=== PATIENT | female | born 1945 | race Caucasian/White ===

== ENCOUNTER → 2016-06-01 09:48 | Outpatient (CLI) | payer MEDICARE, OTHER ==
[2013-02-26 13:24] VITALS: BMI 24.7
[~2016-06-01 09:48] MED LIST: CALCIUM 600+D T1 TA1 PO; CELEBREX200 MG PO; D3 PO; EZFE 200200 MG PO; PREVACID30 MG PO; SINGULAIR10 MG PO; ZOCOR20 MG PO
[2016-06-01 11:01] LABS: BASOPHILS 0.2 % (0.0-2.0); EOSINOPHILS 2.2 % (0-7); HEMATOCRIT 39.2 % (36.0-48.0); HEMOGLOBIN 12.5 g/dL (12-16); IMMATURE GRANULOCYTES 0.2 % (0-5); LYMPHOCYTES 21.4 % (15-50); MCHC 31.9 g/dL (31.0-37.0); MCV 87.7 fL (80.0-100.0); MONOCYTES 7.7 % (2-11); NEUTROPHILS 68.3 % (40-80); PLATELET COUNT 302 10x3/uL (130-400); RBC 4.47 10x6/uL (4.00-5.40); RDW 14.3 % (11.5-14.5); WBC 5.5 10x3/uL (4.8-10.8)
[2016-06-01 11:08] LABS: % SATURATION 22 % (15-55); IRON 69 ug/dl (35-150); TOTAL IRON BIND CAPACITY 305 ug/dl (260-445); UNSAT IRON BIND CAPACITY 236 ug/dl (150-375)
[2016-06-01 11:19] LABS: ALKALINE PHOSPHATASE 84 U/L (46-116); ALT (SGPT) 32 U/L (10-68); BILIRUBIN - DIRECT 0.07 mg/dL (0.00-0.30); BILIRUBIN - INDIRECT 0.26 mg/dL (0.00-1.00); BILIRUBIN - TOTAL 0.33 mg/dL (0.2-1.3); CALC OSMOLALITY 285 mosm/kg (275-300); CALCIUM 8.5 mg/dL (8.5-10.1); CARBON DIOXIDE 32.3 mmol/L (21.0-32.0); CHLORIDE - SERUM 110 mmol/L (98-107); CREATININE - SERUM 0.8 mg/dL (0.6-1.3); FERRITIN 29 ng/mL (3-244); GLUCOSE 85 mg/dL (74-106); MAGNESIUM - SERUM 2.2 mg/dL (1.8-2.4); POTASSIUM - SERUM 4.6 mmol/L (3.5-5.1); PROTEIN - SERUM 6.2 g/dL (6.4-8.2); SODIUM 144 mmol/L (136-145); UREA NITROGEN 13 mg/dL (7-18); eGFR NON AFRICAN AMERICAN 75 mL/min (90-120)
[2016-06-02 09:17] LABS: FOLATE (FOLIC ACID) - SERUM >20.0 ng/mL (>3.0)
[2016-06-02 10:20] LABS: VITAMIN D 25 HYDROXY 45.9 ng/mL (30.0-100.0)
== END | disposition home or self-care (01) ==
LOC: D.LAB 09:48
PROVIDERS: Internal Medicine Gastroenterology
DX: K76.0 Fatty (change of) liver, not elsewhere classified (principal); R63.4 Abnormal weight loss

== ENCOUNTER 2016-08-05 10:00 | Emergency (ER) | payer MEDICARE, OTHER ==
[2013-02-26 13:24] VITALS: BMI 24.7
[2016-08-05 10:47] LABS: HEMATOCRIT 38.2 % (36.0-48.0); HEMOGLOBIN 12.5 g/dL (12-16); LYMPHOCYTES 14.6 % (15-50); MCH 28.4 pg (26.0-34.0); MCHC 32.7 g/dL (31.0-37.0); MCV 86.8 fL (80.0-100.0); MEAN PLATELET VOLUME 8.1 fL (7.4-10.4); NEUTROPHILS 78.2 % (40-80); PLATELET COUNT 305 10x3/uL (130-400); RDW 14.6 % (11.5-14.5); WBC 5.7 10x3/uL (4.8-10.8)
[2016-08-05 11:03] LABS: ALKALINE PHOSPHATASE 83 U/L (46-116); ALT (SGPT) 34 U/L (10-68); BILIRUBIN - TOTAL 0.26 mg/dL (0.2-1.3); CALC OSMOLALITY 277 mosm/kg (275-300); CALCIUM 8.6 mg/dL (8.5-10.1); CHLORIDE - SERUM 104 mmol/L (98-107); CREATININE - SERUM 0.8 mg/dL (0.6-1.3); GLUCOSE 89 mg/dL (74-106); POTASSIUM - SERUM 4.3 mmol/L (3.5-5.1); PROTEIN - SERUM 6.7 g/dL (6.4-8.2); SODIUM 140 mmol/L (136-145); UREA NITROGEN 12 mg/dL (7-18); eGFR NON AFRICAN AMERICAN 75 mL/min (90-120)
[2016-08-05 11:10] LABS: TROPONIN-I < 0.017 ng/mL (0.000-0.060)
== END 2016-08-05 13:57 | disposition home or self-care (01) ==
LOC: D.ER 10:00
PROVIDERS: Emergency Medicine
DX: R53.81 Other malaise (principal); R05 Cough; J11.1 Influenza due to unidentified influenza virus with other respiratory manifestations; K21.9 Gastro-esophageal reflux disease without esophagitis; E78.00 Pure hypercholesterolemia, unspecified; C77.9 Secondary and unspecified malignant neoplasm of lymph node, unspecified; R00.0 Tachycardia, unspecified

== ENCOUNTER 2017-02-18 21:29 | Inpatient (IN) | payer MEDICARE, OTHER ==
--- NOTE | ~2017-02-18 | HEMODYNAMI ---
PATIENT:CHRISSY NAVA MEDICAL RECORD: [id number] : [birth year] LOC[facility] [id number] ADMISSION DATE: 02/19/17 Generatedon:02/20/20179:44 Patient name: CHRISSY NAVA Patient #: [id number] SSN: : 1945 Date of study: 02/20/2017 Page: Of Hemodynamic Procedure Report Patient Data Patient Demographics Procedure consent was obtained First Name: CHRISSY Gender: Female Last Name: BRANDY : 1945 Patient #: [id number] Age: 71 year(s) Race: Unknown Additional ID: [id number] Contact details [address]: [address] [place] [address] rd State: [place] City: [place] Zip code: [address] Past Medical History Allergies: No known allergies Admission Admission Data Admission Date: 02/19/2017 Admission Time: 1:36 Room #: 2121 Weight (lbs.): 130.07 Weight (kg.): 59 Procedure Procedure Types Cath Procedure Diagnostic Procedure LHC LH w/Coronaries Miscellaneous Procedures Moderate Sedation up to 15 minutes Procedure Description Procedure Date Procedure Date: 02/20/2017 Procedure Start Time: 9:29 Procedure End Time: 9:43 Procedure Staff Name Function Tyrno Hager MD Performing Physician Elliott Nguyen RN Nurse Kitty Lea RT Scrub Rody Mohr RT Monitor Juliocesar Junior RT Monitor Procedure Data Cath Procedure Fluoroscopy Diagnostic fluoroscopy Total fluoroscopy Time: 1 time: 1 min min Diagnostic fluoroscopy Total fluoroscopy dose: 104 dose: 104 mGy mGy Contrast Material Contrast Material Type Amount (ml) Isovue 300 29 Entry Location Entry Primary Successful Side Size Upsize Upsize Entry Closure Succes sful Closure Location (Fr) 1 (Fr) 2 (Fr) Remarks Device Remarks Femoral Right 5 Fr Exoseal artery Estimated blood loss: 10 ml Diagnostic catheters Device Type Used For End Catheter Placement Cordis 5Fr JL 4.0 Procedure Catheter (MP) Cordis 5Fr 3DRC Catheter Procedure (MP) Cordis 5Fr Pigtail Procedure Catheter (MP) Procedure Complications No complications Procedure Medications Medication Administration Route Dosage 0.9% NaCl I.V. 100 ml/hr Oxygen NC 2 l/min Heparin Flush Bag added to field 2 bags (1000units/500ml NS) Lidocaine 2% added to field 20 Versed I.V. 1 mg Fentanyl I.V. 50 mcg Hemodynamics Rest Heart Rate: 85 (bpm) Pressure Samples Time Site Value (mmHg) Purpose Heart Use Rate(bpm) 9:32 AO 115/59(83) Snapshot 86 9:32 AO 45/-5(9) Snapshot 87 9:36 LV 116/-19,8 EDP 88 9:36 LV 85/-12,5 Snapshot 88 9:37 AO 108/49(76) Pullback 89 9:37 LV 97/28,4 Pullback 89 Gradients Valve Time Site 1 Site 2 Mean SEP/DFP Peak To Heart Use (mmHg) (sec/min) Peak Rate (mmHg) (bpm) Aortic 9:37 LV AO 0 89 97/28,4 108/49(76) Calculations Valve P-P Mean Valve Index Valve Source Name Gradient Area Flow (cm2) Aortic 0 0 Snapshots Pre Cath Intra NCS Post Cath Vital Signs Time Heart Resp SPO2 etCO2 HR8jiig NIBP (mmHg) Rhythm Pain Sedation Rate (ipm) (%) (mmHg) (mmHg) Status Level (bpm) 9:08:57 84 16 100 0 0 123/71(103) NSR 0 (11) 10(A) , No pain 9:13:34 87 14 100 0 0 121/69(97) NSR 0 (11) 10(A) , No pain 9:18:08 84 15 100 0 0 115/70(95) NSR 0 (11) 10(A) , No pain 9:22:43 90 15 100 0 0 124/65(100) NSR 0 (11) 10(A) , No pain 9:27:17 87 19 99 0 0 117/74(94) NSR 0 (11) 10(A) , No pain 9:31:54 89 16 100 0 0 103/66(81) NSR 0 (11) 9(A) , No pain 9:36:26 87 15 100 0 0 102/61(84) NSR 0 (11) 9(A) , No pain 9:40:59 85 17 100 0 0 100/53(77) NSR 0 (11) 9(A) , No pain Medications Time Medication Route Dose Verified Delivered Reason Notes Effec tiveness by by 9:08:36 0.9% NaCl I.V. 100 Elliott Elliott Per ml/hr Wendy Nguyen physician RN RN 9:08:50 Oxygen NC 2 Elliott Elliott Per l/min Wendy Nguyen physician RN RN 9:09:13 Heparin Flush added 2 Elliott Elliott used for Bag to bags Wendy Nguyen procedure (1000units/500ml field RN RN NS) 9:09:26 Lidocaine 2% added 20ml Elliott Elliott for local to vial Lorigan Lorigan anesthetic field RN RN 9:28:23 Versed I.V. 1 mg Elliott Elliott for Lorigan Lorigan sedation RN RN 9:28:35 Fentanyl I.V. 50 Elliott Elliott for mcg Lorigan Lorigan sedation RN degreasing solution mixer Log Time Note 8:31:55 Juliocesar SANCHEZ(R) sent for patient. Start room use. 8:31:56 Time tracking: Regular hours 8:32:01 Plan of Care:Hemodynamics will remain stable., Cardiac rhythm will remain stable., Comfort level will be maintained., Respiratory function will remain adequate., Patient/ family verbilizes understanding of procedure., Procedure tolerated without complication., Recovers from procedure without complications.. 9:00:21 Patient received from PCU to CCL 1 Alert and oriented. Tansferred to table in Supine position. 9:00:22 Warm blankets applied, and vee hugger turned on for patient comfort. 9:00:22 Correct patient and procedure confirmed by team. 9:00:24 Signed procedure consent form obtained from patient. 9:00:25 ECG and BP/O2 sat monitors applied to patient. 9:00:26 Full Disclosure recording started 9:08:11 Vital chart was started 9:08:36 0.9% NaCl 100 ml/hr I.V. was administered by Elliott Nguyen RN; Per physician; 9:08:50 Oxygen 2 l/min NC was administered by Elliott Nguyen RN; Per physician; 9:09:13 Heparin Flush Bag (1000units/500ml NS) 2 bags added to field was administered by Elliott Lorigan RN; used for procedure; 9:09:26 Lidocaine 2% 20ml vial added to field was administered by Elliott Nguyen RN; for local anesthetic; 9:09:29 Baseline sample Acquired. 9:09:40 Rhythm: sinus rhythm 9:10:15 H&P Date Dictated: 02/19/2017 Within 30 days and on chart.. 9:10:18 Pre-procedure instructions explained to patient. 9:10:18 Pre-op teaching completed and patient verbalized understanding. 9:10:33 Family in patients room. 9:10:48 Patient NPO since Midnight. 9:11:05 Is the patient allergic to Iodine/contrast media? No. 9:11:21 Is patient on blood thinner?Yes 9:11:37 ACC The patient was administered the following blood thiners within the last 24 hours: ACCPlavix 9:11:42 Patient diabetic? No. 9:11:50 Patient not . Patient is over age 55. 9:12:07 Previous problem with sedation/anesthesia? No ? 9:12:10 Snore? Yes 9:12:11 Sleep apnea? No 9:12:13 Deviated septum? No 9:12:15 Opens mouth fully? Yes 9:12:16 Sticks out tongue? Yes 9:12:27 Airway obstruction? No seasonal asthma 9:12:38 Dentures? Yes top in bottom out 9:12:56 Pre procedure: right dorsailis pedis pulse 1+ Palpable, but thready & weak; easily obliterated 9:13:25 Modified Robe's test Ulnar > 7 seconds. 9:13:34 FAILED ALLENS 9:13:40 Patient pain scale 0/10 ?. 9:14:04 IV patent on arrival in left forearm with 0.9% NaCl at O. 9:14:25 Lab results completed and on chart. 9:14:32 Right groin area was prepped with chlora-prep and draped in sterile fashion 9:14:59 Alarms reviewed by RMitul N. 9:15:00 Sharps counted by scrub and verified by R.N. 9:15:07 --------ALL STOP TIME OUT------ 9:15:08 Final Timeout: patient, procedure, and site verified with staff and physician. All members of the team are in agreement. 9:15:11 Right groin site verified by team. 9:15:21 Physical assessment completed. ASA score P 2 - A patient with mild systemic disease as per Tyron Hager MD. 9:15:30 Sedation plan: IV Moderate Sedation Versed, Fentanyl 9:15:46 Zero performed for pressure channel P1 9:15:51 Zero performed for pressure channel P1 9:18:34 Use device set Femoral Dx 9:19:38 Tegaderm 4 x 4 opened to sterile field. 9:19:40 Acist Manifold opened to sterile field. 9:19:42 Acist Hand Control opened to sterile field. 9:20:02 Acist Syringe opened to sterile field. 9:20:03 Bag Decanter opened to sterile field. 9:20:04 Medline Cath Pack opened to sterile field. 9:20:13 Terumo 5Fr [place] Sheath opened to sterile field. 9:20:16 St Santino 260cm J .035 wire opened to sterile field. 9:20:19 Diagnostic Infinity 5Fr Multipack catheter opened to sterile field. 9:21:03 CardioGenics 4Fr Micropuncture Set ([id number]) opened to sterile field. 9:26:59 Patient allergic to No known allergies 9:27:09 Patient Weight : 130.07 lbs 9:27:36 Procedure type changed to Cath procedure, Diagnostic procedure, LHC, LHC w/Coronaries, Miscellaneous Procedures, Moderate Sedation up to 15 minutes 9:28:23 Versed 1 mg I.V. was administered by Elliott Nguyen RN; for sedation; 9:28:35 Fentanyl 50 mcg I.V. was administered by Elliott Nguyen RN; for sedation; 9:29:06 Procedure started. 9:29:27 Local anesthetic to right femoral artery with Lidocaine 2% by Tyron Hager MD.INITIAL ACCESS ONLY 9:30:39 A 5 Fr sheath was inserted into the Right Femoral artery 9:31:08 A Cordis 5Fr JL 4.0 Catheter (MP) was advanced over the wire and used for Procedure. 9:32:11 LCA angiography performed. 9:33:20 Catheter exchanged over wire. 9:33:32 A Cordis 5Fr 3DRC Catheter (MP) was advanced over the wire and used for Procedure. 9:34:38 RCA angiography performed. 9:35:10 Catheter exchanged over wire. 9:35:52 A Cordis 5Fr Pigtail Catheter (MP) was advanced over the wire and used for Procedure. 9:37:24 LV angiography performed. 9:37:38 LV gram done using BENNETT 9:37:50 EF : 65 % 9:37:53 LV hemodynamics recorded. 9:38:01 Injector settings: Ml/sec: 12, Volume: 8, 9:38:05 Catheter removed. 9:38:16 Cordis 5Fr Exoseal opened to sterile field. 9:38:42 Sheath removed intact; hemostasis achieved with Exoseal to the Right Femoral artery. 9:38:47 Procedure ended.(Physican Out) 9:39:04 Fluoroscopy time 01.00 minutes. 9:39:09 Fluoroscopy dose: 104 mGy 9:39:09 Flurop Dose total: 104 9:39:20 Contrast amount:Isovue 300 29ml. 9:39:29 Sharps counted by scrub and verified by R.N. 9:39:36 Insertion/operative site no bleeding no hematoma. 9:39:38 Insertion/operative site no bleeding no hematoma. 9:39:43 Post-op/insertion site Right Femoral artery dressed using a 4 x 4 and Tegaderm. 9:39:47 Post Procedure Pulses reassessed and unchanged 9:40:13 Post-procedure physical assessment completed. ASA score P 2 - A patient with mild systemic disease as per Tyron Hager MD. 9:40:19 Post procedure rhythm: unchanged. 9:40:23 Estimated blood loss: 10 ml 9:40:27 Post procedure instruction explained to patient.Patient verbalizes understanding. 9:40:28 Patient needs reinforcement of post procedure teaching. 9:41:31 Procedure and supply charges have been captured, reviewed, submitted and are correct. 9:43:14 Procedure Complication : No complications 9:43:27 Vital chart was stopped 9:43:28 See physician's report for complete and final results. 9:43:30 Report given to PCU. 9:43:34 Patient transfered to PCU with Bed. 9:43:36 Procedure ended. 9:43:36 Full Disclosure recording stopped 9:43:43 End room use (Document Last) Device Usage Item Name Manufacture Quantity Catalog Hospital Part Current Minimal Lot# / Number Charge Number Stock Stock Serial# Code Tegaderm 4 x 3M 1 1626W 225956 340607 723839 5 4 Acist Acist 1 94411 754933 639233 004155 5 Manifold Medical [employer] Inc Acist Hand Acist 1 33574 585400 954310 752385 5 Control Medical Systems Inc Acist Syringe Acist 1 86101 394232 232255 981200 20 Medical Systems Inc Bag Decanter Microtek 1 2002S 331338 38883 961655 5 Medical Inc. Medline Cath Cardinal 1 [id number] 817199 39230 067773 5 Pack Health Terumo 5Fr Terumo 1 HRQ141 231971 810400 857531 [address] Santino 1 994392 555659 547115 318871 30 J .035 wire Diagnostic Cardinal 1 [id number] 682355 91862 997367 30 Infinity 5Fr Health Multipack catheter Cook 4Fr Cook Medical 1 [id number] 979866 137419 467369 5 Micropuncture Set ([id number]) Cordis 5Fr JL Cardinal 1 865544 5 4.0 Catheter Health (MP) Cordis 5Fr Cardinal 1 572405 5 3DRC Catheter Health (MP) Cordis 5Fr Cardinal 1 181248 5 Pigtail Health Catheter (MP) Cordis 5Fr Cardinal 1 EX500 753471 670177 641460 10 [facility] Health Signature Audit [place] Stage Time Signature Unsigned Intra-Procedure 02/20/2017 Rody Mohr 9:44:16 AM RT(R) Signatures Monitor : Rody Mohr Signature : RT Date : Time : Monitor : Juliocesar Junior RT Signature : Date : Time : [id number] [place] [address]
[2017-02-18 22:20] LABS: BASOPHILS 0.2 % (0-2); EOSINOPHILS 2.3 % (0-7); HEMATOCRIT 35.2 % (36.0-48.0); HEMOGLOBIN 10.8 g/dL (12-16); IMMATURE GRANULOCYTES 0.4 % (0-5); LYMPHOCYTES 35.4 % (15-50); MCH 23.6 pg (26.0-34.0); MCHC 30.7 g/dL (31.0-37.0); MEAN PLATELET VOLUME 8.8 fL (7.4-10.4); MONOCYTES 10.5 % (2-11); NEUTROPHILS 51.2 % (40-80); RBC 4.57 10x6/uL (4.00-5.40); RDW 16.8 % (11.5-14.5); WBC 4.8 10x3/uL (4.8-10.8)
[2017-02-18 22:22] LABS: PLATELET COUNT 392 10x3/uL (130-400)
[2017-02-18 22:24] LABS: APTT 28.1 SECONDS (22.8-39.4); INR 0.92 (0.85-1.17); PROTIME 12.2 SECONDS (11.6-15.0)
[2017-02-18 22:30] LABS: ALKALINE PHOSPHATASE 94 U/L (46-116); ALT (SGPT) 21 U/L (10-68); BILIRUBIN - TOTAL 0.18 mg/dL (0.2-1.3); CALC OSMOLALITY 276 mosm/kg (275-300); CALCIUM 8.4 mg/dL (8.5-10.1); CARBON DIOXIDE 28.3 mmol/L (21.0-32.0); CHLORIDE - SERUM 105 mmol/L (98-107); CREATININE - SERUM 0.8 mg/dL (0.6-1.3); GLUCOSE 100 mg/dL (74-106); POTASSIUM - SERUM 3.9 mmol/L (3.5-5.1); PROTEIN - SERUM 6.4 g/dL (6.4-8.2); SODIUM 138 mmol/L (136-145); UREA NITROGEN 14 mg/dL (7-18); eGFR NON AFRICAN AMERICAN 75 mL/min (90-120)
[2017-02-18 22:40] LABS: CKMB 0.3 U/L (0.0-3.6); CREATINE KINASE 43 UL (21-215)
[2017-02-18 22:54] LABS: TROPONIN-I < 0.017 ng/mL (0.000-0.060)
--- NOTE | 2017-02-19 02:00 | NUR ---
RECEIVED PT TO ROOM FROM ER VIA WC ACCOMPANIED BY SPOUSE AND ER STAFF. VSS, AFEBRILE. DENIES ANY C/O PAIN UPON ARRIVAL. PLACED ON TELE, NSR ON MONITOR HR 76. MEDICATIONS RECONCILED AT THE BEDSIDE. ADMISSION ASSESSMENT AND HISTORY COMPLETED. UNIT ROUTINES AND PROTOCOLS DISCUSSED WITH PT AND SPOUSE, THEY BOTH VERBALIZED UNDERSTANDING. CALL LIGHT PLACED WITHIN REACH. WILL CONT TO MONITOR.
[2017-02-19 02:08] VITALS: BP 124/65
[2017-02-19] MEDS ORDERED: OMEPRAZOLE40 MG PO (02:22)
[2017-02-19 02:25] VITALS: BP 117/65; BMI 23.8
[2017-02-19 04:00] VITALS: BP 116/59
[2017-02-19 05:16] LABS: CKMB 0.3 U/L (0.0-3.6); CREATINE KINASE 34 UL (21-215); TROPONIN-I < 0.017 ng/mL (0.000-0.060)
--- NOTE | 2017-02-19 07:00 | NUR ---
RECEIVED REPORT. ASSUMED CARE OF PATIENT. CALL LIGHT WITHIN REACH. PATIENT SITTING UP IN BED WITH ATTENTION TO TELEVISION. PATIENT SIPPING ON COFFEE. DENEIS ANY CHEST PAIN OR DISCOMFORT. DENIES SOB. SPOUSE AT BEDSIDE. NO DISTRESS.
[2017-02-19 08:00] VITALS: BP 115/58
[2017-02-19 10:33] LABS: BASOPHILS 0.3 % (0-2); EOSINOPHILS 2.8 % (0-7); HEMATOCRIT 33.1 % (36.0-48.0); IMMATURE GRANULOCYTES 0.5 % (0-5); LYMPHOCYTES 34.7 % (15-50); MCH 23.5 pg (26.0-34.0); MCHC 30.2 g/dL (31.0-37.0); MCV 77.9 fL (80.0-100.0); MONOCYTES 9.4 % (2-11); NEUTROPHILS 52.3 % (40-80); PLATELET COUNT 374 10x3/uL (130-400); RBC 4.25 10x6/uL (4.00-5.40); RDW 17.2 % (11.5-14.5); WBC 3.9 10x3/uL (4.8-10.8)
[2017-02-19 11:00] VITALS: BP 121/65
[2017-02-19 11:08] LABS: CALC OSMOLALITY 280 mosm/kg (275-300); CALCIUM 8.6 mg/dL (8.5-10.1); CHLORIDE - SERUM 105 mmol/L (98-107); CKMB 0.4 U/L (0.0-3.6); CREATINE KINASE 37 UL (21-215); CREATININE - SERUM 0.7 mg/dL (0.6-1.3); GLUCOSE 93 mg/dL (74-106); POTASSIUM - SERUM 4.2 mmol/L (3.5-5.1); SODIUM 141 mmol/L (136-145); TROPONIN-I < 0.017 ng/mL (0.000-0.060); UREA NITROGEN 13 mg/dL (7-18); eGFR NON AFRICAN AMERICAN 88 mL/min (90-120)
--- NOTE | 2017-02-19 11:44 | NUR ---
CONSENTS SIGNED AND ON THE CHART FOR HEART CATH IN AM.
--- NOTE | 2017-02-19 14:40 | HP ---
PATIENT: CHRISSY NAVA MEDICAL RECORD: [id number] ACCOUNT: [id number] LOCATION:[address] : [birth year] ADMISSION DATE: 02/19/17 HISTORY AND PHYSICAL EXAMINATION DATE OF ADMISSION: 02/19/2017. CHIEF COMPLAINT: Shortness of breath. HISTORY OF PRESENT ILLNESS: The patient is a 71-year-old female patient who has been a patient of mine for many years. She had over the past couple of weeks, had increasing shortness of breath. She has had some chest tightness. She had been referred to Dr. Lyons, was seen by Dr. Alvarado'elaine last week who had scheduled her to have an echocardiogram as well as a cardiac catheterization. The patient, on Monday, apparently was sitting watching TV noticed elevated pulse rate, low blood pressure, pressure in her chest, presented to the Emergency Room where she was evaluated by the Emergency Room physician felt the patient should be admitted. The patient was therefore admitted to the cardiac service without any notification. PAST MEDICAL HISTORY: Significant that she has had a history of having hyperlipidemia. She has had a history of having asthma in the past. She had carpal tunnel syndrome, anxiety, history of anemia, postmenopausal syndrome, osteoporosis. She is a . She had a gastric bypass, tonsillectomy, cholecystectomy. She has had a concussion in 1975, metastatic melanoma in 1996, broken elbow in 2000. FAMILY HISTORY: Mother had Alzheimer's, thyroid issues. Grandfather had myocardial infarction. Father had asthma. SOCIAL HISTORY: The patient was born and raised in [facility]. She is a retired email marketing assistant. Mother of 3. She is educated through the 12th grade. She is . HABITS: She denies any ethanol, tobacco use or abuse. MEDICATIONS: Include Singulair 10 mg once a day, Prilosec 20 mg once a day, ProAir 90 mcg 2 puffs q.4 hours p.r.n. shortness of breath, Zocor 20 mg 1 p.o. q.h.s. REVIEW OF SYSTEMS: CONSTITUTIONAL: She denies any headaches, seizure, or syncope. She denies change in visual or auditory acuity. PULMONARY: She has reported having shortness of breath. CARDIOVASCULAR: She has had chest pain. She has had no palpitations. No PND or orthopnea. GASTROINTESTINAL: No chronic nausea, vomiting, melena or hematochezia. GENITOURINARY: No urgency, frequency, or dysuria. PHYSICAL EXAMINATION: VITAL SIGNS: Today, the patient's temperature is 97, pulse 81, respirations 20 and blood pressure is 145/67 and O2 sat is 97%. HEENT: Head is normocephalic. No lesions. Ears: TMs clear. Eyes: Pupils equal, round and reactive to light. Her extraocular movements are intact. Nasal cavity, oral cavity, and oropharynx are clear. HISTORY AND PHYSICAL [id number] BRANDYCHRISSY NECK: Supple. There is no adenopathy. HEART: Has a regular rate and rhythm without any murmurs, gallops or rubs. LUNGS: Clear. ABDOMEN: Soft, bowel sounds are positive. LABORATORY DATA: Hemoglobin was 10.8, hematocrit 35.2, her platelets were 392. INR was 0.92. Her PTT was 28.1. Sodium was 138, potassium 3.9, chloride 105, and CO2 was 28.3, BUN is 14, creatinine is 0.8. The patient had a chest x-ray, which was unremarkable. EKG showed normal sinus rhythm, no ST-T wave changes. Cardiac enzymes were unremarkable. ASSESSMENT: Chest pain, possible angina, history of hyperlipidemia, family history of coronary artery disease, history of gastric bypass, history of gastroesophageal reflux, and asthma. PLAN: The patient is admitted. Cardiology consultation will be obtained. The patient will have cardiac enzymes q.8 hours, also will have echocardiogram. Will proceed with heart catheterization on Monday. TRANSINT:[id number] Voice Confirmation ID: [id number] DOCUMENT ID: [id number] RENAY LAY MD at 1440 CC: [id number] DICTATION DATE: 02/19/17 1020 ACCOUNT DEVELOPMENT EXECUTIVE: 02/19/17 1107 ADM IN [facility] [address] [place] [address]
[2017-02-19 15:04] VITALS: BP 127/61
[2017-02-19 16:12] LABS: CKMB 0.2 U/L (0.0-3.6); CREATINE KINASE 38 UL (21-215)
[2017-02-19 16:13] LABS: TROPONIN-I < 0.017 ng/mL (0.000-0.060)
--- NOTE | 2017-02-19 17:56 | NUR ---
PAGE PLACED TO PATIENT IS CONCERNED WITH RECEIVING HER HOME MEDICATIONS AND NONE WAS RESTARTED.
--- NOTE | 2017-02-19 18:00 | NUR ---
ORDERED RECEIVED FROM TO CONTINUE ALL HOME MEDS. ORDERS INPUTTED INTO THE COMPUTER.
--- NOTE | 2017-02-19 20:00 | NUR ---
PT RESTING IN BED. ALERT/ORIENTED. AT BEDSIDE. O2 @2L/NC WITH SHALLOW/NONLABORED RESPIRATIONS. PIV TO LFA SALINE LOCKED. PT WILL HAVE ANGIOGRAM IN AM. NPO AFTER MIDNGHT. CPOC.
--- NOTE | 2017-02-19 23:11 | NUR ---
PT RESTING, FEELING SOME TIGHTNESS IN HER CHEST. APPLIED NEW NITRO PASTE TO CHEST WALL. PT NO LONGER WISHES TO WAIT FOR HS MEDS (NIFEREX/SINGULAR/ZOCOR) TO BE PULLED BY REEXAMINER. SHE STATES SHE IS READY TO GO TO SLEEP. SALINE LOCK FLUSHED IN LFA/PATENT. PT WILL BE NPO AFTER MIDNIGHT FOR LEFT HEART CATH IN AM PER DR DE LA CRUZ. STAYING AT BEDSIDE. NO OTHER NEEDS AT THIS TIME.
[2017-02-20] VITALS: BP 127/62
--- NOTE | 2017-02-20 03:45 | NUR ---
PT RESTING WITH EYES CLOSED. RESPS EVEN/NONLABORED. AT BEDSIDE.
[2017-02-20 04:00] VITALS: BP 112/67
[2017-02-20 04:47] LABS: BASOPHILS 0.2 % (0-2); EOSINOPHILS 4.2 % (0-7); HEMATOCRIT 35.4 % (36.0-48.0); HEMOGLOBIN 10.7 g/dL (12-16); IMMATURE GRANULOCYTES 0.4 % (0-5); LYMPHOCYTES 23.2 % (15-50); MCH 23.3 pg (26.0-34.0); MCHC 30.2 g/dL (31.0-37.0); MCV 77.1 fL (80.0-100.0); MEAN PLATELET VOLUME 8.8 fL (7.4-10.4); PLATELET COUNT 388 10x3/uL (130-400); RBC 4.59 10x6/uL (4.00-5.40); RDW 17.2 % (11.5-14.5)
[2017-02-20 04:48] LABS: WBC 5.3 10x3/uL (4.8-10.8)
[2017-02-20 04:58] LABS: ANION GAP 13.3 mmol/L (8-16); CALCIUM 8.3 mg/dL (8.5-10.1); POTASSIUM - SERUM 4.3 mmol/L (3.5-5.1)
[2017-02-20 04:59] LABS: CREATININE - SERUM 0.9 mg/dL (0.6-1.3)
--- NOTE | 2017-02-20 07:30 | NUR ---
RECEIVED PT IN BED AAOX4 RESP UNLABORED DENIES ANY NEEDS OR DISCOMFORT AT THIS NAD NOTED TIME AT BEDSIDE
[2017-02-20 08:00] VITALS: BP 116/62
--- NOTE | 2017-02-20 09:10 | NUR ---
PT TO TRUSS ASSEMBLER VIA BED IN STABLE CONDITION
--- NOTE | 2017-02-20 10:00 | NUR ---
RECEIVED PT BACK FROM HISTORIAN RESEARCH ASSISTANT VSS DRSG TO RT GROIN C/D/I PPPX4 NAD NOTED
[2017-02-20 11:43] VITALS: BP 103/57
--- NOTE | 2017-02-20 16:50 | NUR ---
REVIEWED DISCHARGE INSTRUCTIONS WITH PT STATES UNDERSTANDING COPY GIVEN DCD SALINE LOCK TO LFA WITH IV CATHETER INTACT SITE FREE OF REDNESS OR EDEMA PT DISCHARGED HOME LEFT UNIT VIA W//C IN STABLE CONDITION WITH ALL PERSONAL BELONGINGS
--- NOTE | 2017-03-02 12:49 | EC ---
PATIENT:CHRISSY NAVA DATE OF SERVICE: 02/20/17 SEX: F MEDICAL RECORD: [id number] DATE OF : [birth year] LOCATION:D.M2 D.212 AGE OF PATIENT: 71 ADMISSION DATE: 02/20/17 REFERRING PHYSICIAN: INTERPRETING PHYSICIAN: PARDEEP DE LA CRUZ MD ECHOCARDIOGRAM REPORT ECHO CHARGES 4 ECHO COMPLETE CLINICAL DIAGNOSIS: CHEST PAIN ECHOCARDIOGRAPHIC MEASUREMENTS (adult normal given) AC root (d.<3.7cm) 3.5 cm LV Septum d (<1.2 cm> 1.1 cm Valve Excursion 1.7 cm LV Septum (systole) 1.2 cm Left Atria (s.<4.0cm> 3.0 cm LVPW d(<1.2cm) 1.2 cm RV (d.<2.3cm) 2.6 cm LVPW (sytole) 1.6 cm LV diastole(<5.6CM) 5.0 cm MV E-F(>70mm/sec) cm LV systole 3.3 cm LVOT Diameter 1.9 cm MV exc.(>10mm) 1.5 cm Est.ejection fraction (50-75%) % Pericardial Effusion N DOPPLER: LVIT cm/sec A 63.0 cm/sec E 48.0 cm/sec LA cm/sec RVSP 32 mmHg LVOT 71 cm/sec AOP1/2T m/s Asc. Ao 132 cm/sec RVOT 64 cm/sec RA cm/sec PA 111 cm/sec AV Gradient Peak 6.95 mmHg AV Mean 3.91 mmHg AV Area 1.5 cm MV Gradient Peak 3.55 mmHg MV Mean 1.18 mmHg MV Area cm COMMENTS: Electronics Design Engineer: 2 SERENA LUNA Technical Professional: 4 Dr. De La Cruz TAPE# PACS DATE OF SERVICE: 02/19/2017 PROCEDURE: Transthoracic echocardiogram. FINDINGS: 1. The left ventricle has mild left ventricular hypertrophy with an ejection fraction of 60% to 65%, inflow characteristics consistent with diastolic dysfunction. There is no regional wall motion abnormalities. 2. The mitral valve shows mild mitral regurgitation. There is mitral annular calcification that is mild, structure of the mitral valve is grossly normal. ECHOCARDIOGRAM REPORT [id number] CHRISSY NAVA 3. The aortic valve difficult to visualize, but grossly normal without any evidence of significant aortic stenosis or aortic regurgitation. 4. The tricuspid valve shows mild tricuspid regurgitation with normal to mildly elevated right ventricular systolic pressures of 25-30 mmHg. 5. The pulmonary valve is normal by Doppler evaluation. 6. The right ventricle is normal size, normal structure. 7. The right atrium is normal size, normal structure. In conclusion, the patient has evidence of mild hypertensive heart disease with preserved LV systolic function. TRANSINT:[id number] Voice Confirmation ID: [id number] DOCUMENT ID: [id number] 02/28/2017 Edited to correct date of service, dm. PARDEEP DE LA CRUZ MD at 1249 CC: [id number] DICTATION DATE: 02/20/17 0717 SHIPPING AND RECEIVING OPERATOR: 02/20/17 1104 DIS IN 02/20/17 [address] [address] [place] [address]
--- NOTE | 2017-04-17 06:54 | DS ---
PATIENT:CHRISSY NAVA :49 MEDICAL RECORD: [id number] DISCHARGE SUMMARY ADMISSION DATE: 02/20/17 DISCHARGE DATE: 02/20/17 DATE OF ADMISSION: 02/20/2017 DATE OF DISCHARGE: 02/20/2017 CONDITION ON DISCHARGE: Improved. ADMITTING DIAGNOSES: Chest pain, possible angina; history of hyperlipidemia; family history of coronary artery disease; history of gastric bypass; and history of gastroesophageal reflux. DISCHARGE DIAGNOSES: Chest pain, hyperlipidemia, history of anxiety, and postmenopausal syndrome. HOSPITAL COURSE: The patient is a 71-year-old female who has been a patient of [facility] for many years. The patient, over the past couple of weeks, had increasing shortness of breath. She had had some chest tightness. She had been referred to Dr. Lyons and was seen by Dr. Alvarado'elaine last week, who had scheduled an echocardiogram as well as a cardiac catheterization. The patient, on Monday, apparently while watching TV, developed elevated pulse rate, low blood pressure, and pressure in her chest. The patient presented to the Emergency Room for evaluation. It was felt that she should be admitted. PHYSICAL EXAMINATION: VITAL SIGNS: She was afebrile. Her vital signs were stable. Her pulse was 81 and O2 sat was 97%. HEENT: Unremarkable. NECK: Supple. There was no adenopathy. HEART: Regular rate without murmurs, gallops, or rubs. LUNGS: Clear. She did have hemoglobin somewhat low at 10.8, hematocrit 35.2, and platelets were 392. BUN and creatinine were normal. Cardiac enzymes were unremarkable. The patient was seen in consultation by Dr. Hager. She underwent an echocardiogram. Echocardiogram, transthoracic, revealed ejection fraction of 60% to 65%. She did have inflow characteristics consistent with diastolic dysfunction. No regional wall motion abnormalities could be appreciated. The patient did have preserved LV systolic function with mild hypertensive heart noted. The patient underwent cardiac catheterization. Findings were left main was normal, mild plaque. 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 Mild plaquing. Mild 40% stenosis in the RCA. It was felt the patient was stable and could be discharged; therefore, the patient was discharged home. MEDICATIONS: Include Singulair 10 mg once a day, Zocor 20 mg once a day, vitamin D3 2000 international units daily, iron 200 mg p.o. b.i.d., and Prilosec 40 mg daily. The patient will continue her current meds. She will follow up with me in one week. Activities are ad crispin. She will be on a low-fat diet as well. TRANSINT:[id number] Voice Confirmation ID: [id number] DOCUMENT ID: [id number] DISCHARGE SUMMARY REPORT [id number] CHRISSY NAVA JAMES MD at 0654 CC: [id number] DICTATION DATE: 04/16/17 1142 SURFACE MINER: 04/16/17 1637 DIS IN 02/20/17 [place] [id number] [place] [address]
== END 2017-02-20 16:50 | disposition home or self-care (01) | DRG 287 ==
LOC: D.ER 21:29 → D.M2 02-19 01:36 → OBSVTIME 02-19 01:36 → D.M2 02-19 01:36
PROVIDERS: Family Medicine; Internal Medicine Cardiovascular Disease; ADMIT Family Medicine
PROC: B2151ZZ Fluoroscopy of Left Heart using Low Osmolar Contrast (ICD-10-PCS; 2017-02-20)
PROC: 4A023N7 Measurement of Cardiac Sampling and Pressure, Left Heart, Percutaneous Approach (ICD-10-PCS; 2017-02-20)
PROC: B2111ZZ Fluoroscopy of Multiple Coronary Arteries using Low Osmolar Contrast (ICD-10-PCS; principal; 2017-02-20 08:00)
DX: R07.89 Other chest pain (principal); I25.10 Atherosclerotic heart disease of native coronary artery without angina pectoris; E78.5 Hyperlipidemia, unspecified; E78.00 Pure hypercholesterolemia, unspecified; F41.9 Anxiety disorder, unspecified; Z78.0 Asymptomatic menopausal state; M81.0 Age-related osteoporosis without current pathological fracture; K21.9 Gastro-esophageal reflux disease without esophagitis

== ENCOUNTER 2017-02-19 01:36 | Observation (INO) | payer MEDICARE, OTHER ==
[2017-02-19] MEDS ORDERED: OMEPRAZOLE40 MG PO (02:22)
[2017-02-19 02:25] VITALS: BMI 23.8
== END 2017-02-20 09:46 | disposition other institution (70) ==
LOC: OBSVTIME 01:36 → D.SDCHOLD 01:36
PROVIDERS: ADMIT Family Medicine
DX: R07.9 Chest pain, unspecified (principal); I25.10 Atherosclerotic heart disease of native coronary artery without angina pectoris; E78.5 Hyperlipidemia, unspecified; E78.00 Pure hypercholesterolemia, unspecified; F41.9 Anxiety disorder, unspecified; Z78.0 Asymptomatic menopausal state; M81.0 Age-related osteoporosis without current pathological fracture; K21.9 Gastro-esophageal reflux disease without esophagitis

== ENCOUNTER → 2017-03-07 07:37 | Outpatient (CLI) | payer MEDICARE, OTHER ==
[2017-02-19 02:25] VITALS: BMI 23.8
[~2017-03-07 07:37] MED LIST changes: +OMEPRAZOLE40 MG PO
== END ==
LOC: D.RT 07:37
DX: R06.00 Dyspnea, unspecified (principal)

== ENCOUNTER → 2017-05-09 19:27 | Outpatient (CLI) | payer MEDICARE, OTHER | END | disposition home or self-care (01) | LOC: D.SLEEP 08:00 | DX: G47.33 Obstructive sleep apnea (adult) (pediatric) (principal) ==

== ENCOUNTER → 2017-06-14 09:08 | Outpatient (CLI) | payer MEDICARE, OTHER ==
[2017-06-14 10:25] LABS: BILIRUBIN - INDIRECT 0.18 mg/dL (0.00-1.00); BILIRUBIN - TOTAL 0.2 mg/dL (0.2-1.3); PROTEIN - SERUM 6.1 g/dL (6.4-8.2); THYROID STIMULATING HORMONE 0.99 uIU/mL (0.36-3.74)
[2017-06-14 10:26] LABS: BILIRUBIN - DIRECT 0.02 mg/dL (0.00-0.30)
[2017-06-15 13:17] LABS: ANA REFLEX - ANTICHROMATIN ABS <0.2 AI (0.0-0.9); ANA REFLEX - CENTROMERE B ABS <0.2 AI (0.0-0.9); ANA REFLEX - DBL STRANDED DNA 10 IU/mL (0-9); ANA REFLEX - DIRECT Positive (Negative); ANA REFLEX - JO-1 AB <0.2 AI (0.0-0.9); ANA REFLEX - RNP ANTIBODIES <0.2 AI (0.0-0.9); ANA REFLEX - SCL-70 <0.2 AI (0.0-0.9); ANA REFLEX - SJOGRENS AB SSA <0.2 AI (0.0-0.9); ANA REFLEX - SJOGRENS AB SSB <0.2 AI (0.0-0.9); ANA REFLEX - SMITH AB <0.2 AI (0.0-0.9)
== END | disposition home or self-care (01) ==
LOC: D.LAB 09:08 → D.NM 10:00
PROVIDERS: Internal Medicine Pulmonary Disease
DX: I27.1 Kyphoscoliotic heart disease (principal); Z13.29 Encounter for screening for other suspected endocrine disorder

== ENCOUNTER → 2017-11-01 06:26 | Outpatient (CLI) | payer MEDICARE, OTHER | END | disposition home or self-care (01) | LOC: D.MRI 06:26 | DX: M25.562 Pain in left knee (principal) ==

== ENCOUNTER 2017-11-24 14:00 | Outpatient (CLI) | payer MEDICARE, OTHER | END 2017-11-24 14:30 | LOC: D.MAMMO 14:00 | DX: Z12.31 Encounter for screening mammogram for malignant neoplasm of breast (principal) ==

== ENCOUNTER → 2017-12-18 10:08 | Outpatient (CLI) | payer MEDICARE, OTHER ==
--- NOTE | ~2017-12-18 | EC ---
PATIENT:CHRISSY NAVA DATE OF SERVICE: 12/18/17 SEX: F MEDICAL RECORD: [id number] DATE OF : 49 LOCATION:D[facility] AGE OF PATIENT: 72 ADMISSION DATE: 12/18/17 REFERRING PHYSICIAN: INTERPRETING PHYSICIAN: DORENE CHÁVEZ MD ECHOCARDIOGRAM REPORT ECHO CHARGES 4 ECHO COMPLETE Date: 12/18 CLINICAL DIAGNOSIS: PULMONARY HTN ECHOCARDIOGRAPHIC MEASUREMENTS (adult normal given) AC root (d.<3.7cm) 2.8 cm LV Septum d (<1.2 cm> 0.8 cm Valve Excursion 1.8 cm LV Septum (systole) 1.2 cm Left Atria (s.<4.0cm> 3.1 cm LVPW d(<1.2cm) 1.1 cm RV (d.<2.3cm) 3.0 cm LVPW (sytole) 1.4 cm LV diastole(<5.6CM) 5.4 cm MV E-F(>70mm/sec) cm LV systole 3.7 cm LVOT Diameter 1.9 cm MV exc.(>10mm) cm Est.ejection fraction (50-75%) % DOPPLER: LVIT cm/sec A 53.0 cm/sec E 89.0 cm/sec LA cm/sec RVSP 33.0 mmHg LVOT 78.0 cm/sec AOP1/2T m/s Asc. Ao 153 cm/sec RVOT 48.0 cm/sec RA cm/sec PA 90.0 cm/sec AV Gradient Peak 9.3 mmHg AV Mean 5.3 mmHg AV Area 1.4 cm MV Gradient Peak 4.0 mmHg MV Mean 1.3 mmHg MV Area cm COMMENTS: Cambering Machine Operator: 1 KASH SCHUSTEROE Asphalt Tamping Machine Operator: 3 Dr. Alvarado TAPE# PACS Pericardial Effusion N DATE OF SERVICE: Adequate 2D echo, color-flow and spectral Doppler, and M-Mode. No LVH. LV internal dimension is normal. Wall motion is normal. EF is greater than 55%. Aortic valve is tricuspid. No evidence of stenosis by Doppler interrogation. Left atrium is normal, 3.1 cm. Mitral valve is thickened. Trace MR. Right-sided chambers appear grossly normal. Mild TR. RV systolic pressure estimated at greater than or equal to 33 mmHg via the continuity equation. ECHOCARDIOGRAM REPORT [id number] CHRISSY NAVA TRANSINT:[id number] Voice Confirmation ID: [id number] DOCUMENT ID: [id number] DORENE CHÁVEZ MD at 1505 CC: [id number] DICTATION DATE: 12/18/17 1341 CHAMBER WALKER: 12/18/17 1404 DEP CLI 12/18/17 [place] [id number] [place] [id number]
== END | disposition home or self-care (01) ==
LOC: D.ECHO 10:08
DX: I27.20 Pulmonary hypertension, unspecified (principal)